=== PATIENT | male | born 1975 | race Caucasian/White ===

== ENCOUNTER 2016-12-19 18:23 | Emergency (ER) | payer OTHER ==
[~2016-12-19] VITALS: Ht 193 cm; Wt 122.5 kg
[2016-12-19 18:24] VITALS: BP 172/102
[2016-12-19] MEDS ORDERED: LIDOCAINE 2% 20 ML VIAL. IJ ONE (18:45)
[2016-12-19] MEDS ORDERED: LIDOCAINE 1% / SOD BICARB 8.4% 20 ML VIAL. IJ ONE (18:47)
[2016-12-19] MEDS ORDERED: NAPR500T PO (18:51)
[2016-12-19] MEDS ORDERED: SULF1TAB24 PO (18:51)
--- NOTE | 2016-12-19 18:52 | PHYS DOC ---
Adult General Chief Complaint Chief Complaint: OTHER COMPLAINTS HPI HPI Patient is a 41 year old male presents to the emergency department with complaints of an infected sebaceous cyst. Patient states he's had a sebaceous cyst in that area for "a long time". Patient states that he was working outdoors over the weekend and hit his back with a foreign branch. He is here now seeking evaluation. He reports no fever, no arthralgias or myalgias. Review of Systems Review of Systems Constitutional: Denies fever or chills [] Eyes: Denies change in visual acuity, redness, or eye pain [] HENT: Denies nasal congestion or sore throat [] Respiratory: Denies cough or shortness of breath [] Cardiovascular: No additional information not addressed in HPI [] GI: Denies abdominal pain, nausea, vomiting, bloody stools or diarrhea [] : Denies dysuria or hematuria [] Musculoskeletal: Denies back pain or joint pain [] Integument: Abscess Neurologic: Denies headache, focal weakness or sensory changes [] Endocrine: Denies polyuria or polydipsia [] Current Medications Current Medications Current Medications Medications (Trade) Dose Ordered Sig/[facility] Start Time Stop Time Status Last Admin Dose Admin Lidocaine HCl 20 ml 1X ONCE 12/19/16 18:45 12/19/16 18:46 UNV Physical Exam Physical Exam Constitutional: Well developed, well nourished, no acute distress, non-toxic appearance. [] Neck: Normal range of motion, no tenderness, supple, no stridor, no lymph adenopathy [] Cardiovascular:Heart rate regular rhythm, no murmur [] Lungs & Thorax: Bilateral breath sounds clear to auscultation [] Back: Mid back, lateral to the thoracic spine there is a raised 4 cm fluctuant area that is erythematous, mildly tender to palpate. EKG EKG [] Radiology/Procedures Radiology/Procedures Procedure note: Area cleansed with alcohol, anesthetized with 1 mL of 2% lidocaine. A #11 blade was utilized to make half centimeter incision, moderate amount of thick white discharge. Course & Med Decision Making Course & Med Decision Making Pertinent Labs and Imaging studies reviewed. (See chart for details) []I spoke with the patient and/or care givers. I've explained the patient's condition, diagnosis and treatment plan based on the information available to me at this time. I've answered the patient's and/or care givers questions and a dressing concerns. The patient and/or care givers have as good an understanding of the patient's diagnosis, condition and treatment plan as can be expected at this time. Vital signs stable. The patient's condition is stable and appropriate for discharge from the emergency department. The patient will pursue further outpatient evaluation with the primary care physician or other designated or consulting physician as outlined in the discharge instructions. The patient and/or care givers are agreeable to this plan of care and follow-up instructions and explained in detail. The patient and /or care givers have received these instructions in written format and have expressed an understanding of the discharge instructions. The patient and/or caregivers are aware that any significant change in condition or worsening of symptoms should prompt immediate return to this closest emergency department or call to 911.[] Dragon Disclaimer Dragon Disclaimer This electronic medical record was generated, in whole or in part, using a voice recognition dictation system. Departure Departure Impression: Primary Impression: Infected sebaceous cyst of skin Disposition: HOME, SELF-CARE Condition: STABLE [facility]errals: [facility] [place] Patient Instructions: Abscess, Care After Scripts Naproxen (NAPROSYN) 500 Mg Tablet 500 MG PO BID Y for PAIN, #20 TAB Prov: TODD PARMAR APRN 12/19/16 Sulfamethoxazole/Trimethoprim (BACTRIM DS TABLET) 1 Each Tablet 1 TAB PO BID, #20 TAB Prov: TODD PARMAR APRN 12/19/16 TODD PARMAR APRN Dec 19, 2016 18:52
== END 2016-12-19 18:54 | disposition home or self-care (01) ==
LOC: ER 18:23
DX: L72.3 Sebaceous cyst (principal); L08.9 Local infection of the skin and subcutaneous tissue, unspecified
CPT/HCPCS: 10060; 99283-25; J2001

== ENCOUNTER 2017-04-03 13:22 | Emergency (ER) | payer OTHER ==
[~2017-04-03] VITALS: Ht 193 cm; Wt 117.9 kg
[~2017-04-03 13:22] MED LIST: NAPR-683 PO; SULF1TAB24 PO
[2017-04-03] MEDS ORDERED: LISI1TAB7 PO (13:44)
[2017-04-03] MEDS ORDERED: OMEG-165 PO (13:44)
[2017-04-03 14:20] VITALS: BP 171/100
[2017-04-03] MEDS ORDERED: AMOX875T PO (14:22)
--- NOTE | 2017-04-03 17:13 | PHYS DOC ---
Past Medical History Past Medical History: Hypertension Past Surgical History: No Surgical History Alcohol Use: Occasionally Drug Use: None Adult General Chief Complaint Chief Complaint: DENTAL PROBLEM HPI HPI Patient is a 41 year old male who presents with dental pain after fracturing a molar. The patient's tooth broke and he scheduled an appointment in4 days, but the tooth has started to become painful and he is worried about possible infection. He has been using OTC pain relief. Review of Systems Review of Systems Constitutional: Denies fever or chills [] HENT: History of present illness Respiratory: Denies cough or shortness of breath [] Cardiovascular: No additional information not addressed in HPI [] Neurologic: Denies headache, focal weakness or sensory changes [] Endocrine: Denies polyuria or polydipsia [] All other systems were reviewed and found to be within normal limits, except as documented in this note. Allergies Allergies Allergies Coded Allergies Type Severity Reaction Last Updated Verified erythromycin base Allergy Severe throat swelling 04/03/17 Yes Physical Exam Physical Exam Constitutional: Well developed, well nourished, no acute distress, non-toxic appearance. [] HENT: Normocephalic, atraumatic, bilateral external ears normal, oropharynx moist, no oral exudates, nose normal, the patient's upper right molar is fractured and missing the filling with erythema noted to gum, no pus pool is evident. [] Eyes: PERRLA, EOMI, conjunctiva normal, no discharge. [] Neck: Normal range of motion, no tenderness, supple, no stridor. [] Cardiovascular:Heart rate regular rhythm, no murmur [] Lungs & Thorax: Bilateral breath sounds clear to auscultation [] Neurologic: Alert and oriented X 3, normal motor function, normal sensory function, no focal deficits noted. [] Psychologic: Affect normal, judgement normal, mood normal. [] Current Patient Data Vital Signs Vital Signs Date Time Temp Pulse Resp B/P (MAP) Pulse Ox O2 Delivery O2 Flow Rate FiO2 04/03/17 14:20 98 16 171/100 (123) 98 Room Air 04/03/17 13:35 98.1 98.1 EKG EKG [] Radiology/Procedures Radiology/Procedures [] Course & Med Decision Making Course & Med Decision Making Pertinent Labs and Imaging studies reviewed. (See chart for details) []1. Tooth fracture 2. Dental infection It appears that your fracture to it is becoming infected. You've been placed on amoxicillin. Please keep your appointment for this coming Friday for further evaluation by her dentist. He may use salt water gargles. Try not to chew on the affected side until the tooth is repaired or removed. If worsening please return to the ED. You did have elevated blood pressure in the emergency department, you did state that this is normal for you as you have whitecoat syndrome. You also stated that your blood pressure was normal at home. Please feel free to come back to the emergency room this evening for a recheck of your blood pressure if you are worried. Please continue to take your blood pressure medication as directed and checked her blood pressure at home Dragon Disclaimer Dragon Disclaimer This electronic medical record was generated, in whole or in part, using a voice recognition dictation system. Departure Departure Impression: Primary Impression: Dental infection Additional Impression: Fractured tooth Disposition: HOME, SELF-CARE Condition: STABLE Patient Instructions: Dental Abscess Additional Instructions: Keep your appointment with your dentist as already scheduled. He may take ibuprofen or Tylenol for pain. Scripts Amoxicillin (AMOXICILLIN) 875 Mg Tablet 1 TAB PO BID, #20 TAB Prov: JENNIFER POPE APRN 04/03/17 Problem Qualifiers JENNIFER POPE APRN Apr 03, 2017 17:13
== END 2017-04-03 14:33 | disposition home or self-care (01) ==
LOC: ER 13:22
DX: S02.5XXA Fracture of tooth (traumatic), initial encounter for closed fracture (principal); K04.7 Periapical abscess without sinus; I10 Essential (primary) hypertension; Z88.1 Allergy status to other antibiotic agents; X58.XXXA Exposure to other specified factors, initial encounter; Y93.89 Activity, other specified; Y92.89 Other specified places as the place of occurrence of the external cause; Y99.8 Other external cause status
CPT/HCPCS: 99283